=== PATIENT | male | born 1965 | race Caucasian/White ===

== ENCOUNTER 2023-09-23 10:44 | Inpatient (IN) | payer OTHER ==
[2023-09-23 11:15] VITALS: BMI 27.4
[2023-09-23] MEDS ORDERED: ONDANSETRON *ODT* 4 MG TABLET SL PRN (13:48)
[2023-09-23] MEDS ORDERED: MAGNESIUM HYDROX 2400MG/30ML ORAL SUSPENSION 30 ML CUP PO PRN (13:48)
[2023-09-23] MEDS ORDERED: NALOXONE HCL 0.4 MG/ML VIAL IM PRN (13:48)
[2023-09-23] MEDS ORDERED: POLYETHYLENE GLYCOL (HEALTHYLAX) 3350 17 GM PACKET PO PRN (13:48)
[2023-09-23] MEDS ORDERED: IBUPROFEN 400 MG TABLET (FP) PO PRN (13:48)
[2023-09-23] MEDS ORDERED: BENZOCAINE/MENTHOL (CHLORASEPTIC ) LOZENGE MM PRN (13:48)
[2023-09-23] MEDS ORDERED: METHOCARBAMOL 500 MG TABLET PO PRN (13:48)
[2023-09-23] MEDS ORDERED: MAG HYDROX/AL HYDROX/SIMETH 30 ML UNIT-DOSE CUP PO PRN (13:48)
[2023-09-23] MEDS ORDERED: NALOXONE HCL (KLOXXADO) 8 MG SPRAY NS PRN (13:48)
[2023-09-23] MEDS ORDERED: IBUPROFEN 600 MG TABLET (FP) PO PRN (13:48)
[2023-09-23] MEDS ORDERED: DICYCLOMINE HCL 10 MG CAPSULE PO PRN (13:48)
[2023-09-23] MEDS ORDERED: chlordiazePOXIDE HCL 25 MG CAPSULE PO PRN (13:48)
[2023-09-23] MEDS ORDERED: BENZONATATE 200 MG CAPSULE PO PRN (13:48)
[2023-09-23] MEDS ORDERED: LOPERAMIDE HCL 2 MG CAPSULE PO PRN (13:48)
[2023-09-23] MEDS ORDERED: BISMUTH SUBSALICYLATE 524 MG/30 ML PO PRN (13:48)
[2023-09-23] MEDS: MUPIROCIN 2% TOPICAL OINTMENT 22 GM TUBE TP SCH (15:51)
[2023-09-23] MEDS: hydrOXYzine PAMOATE 25 MG CAPSULE (FP) PO PRN (16:06)
[2023-09-23] MEDS: chlordiazePOXIDE HCL 25 MG CAPSULE PO SCH (17:50)
[2023-09-23] MEDS: FAMOTIDINE 20 MG TABLET PO SCH (22:50)
[2023-09-23] MEDS: THIAMINE 100 MG TABLET PO SCH (22:50)
[2023-09-23] MEDS: SULFAMETHOXAZOLE/TRIMETHOPRIM 800MG/160MG D.S. TABLET PO SCH (22:50)
[2023-09-23] MEDS: MELATONIN 5 MG TABLETS PO SCH (22:52)
[2023-09-24] MEDS: TAMSULOSIN HCL 0.4 MG CAP PO SCH (08:46)
[2023-09-24] MEDS: PRENATAL VITAMINS W/ FOLIC ACID TABLET (FP) PO SCH (10:49)
[2023-09-24] MEDS: LORATADINE 10 MG TABLET PO SCH (10:49)
[2023-09-24] MEDS: ATORVASTATIN CA 40 MG TABLET (FP) PO SCH (10:49)
[2023-09-24] MEDS: FLUTICASONE PROP 0.05% 16 GM NASAL SPRAY NS SCH (10:49)
[2023-09-24] MEDS: guaiFENesin 600 MG TABLET.ER (FP) PO PRN (16:28)
[2023-09-24] MEDS: ACETAMINOPHEN 325 MG TABLET (FP) PO PRN (17:37)
[2023-09-25] MEDS: chlordiazePOXIDE HCL 25 MG CAPSULE PO SCH (05:35)
[2023-09-25] MEDS: NICOTINE POLACRILEX 2 MG LOZENGE BC PRN (05:49)
[2023-09-26] MEDS ORDERED: chlordiazePOXIDE HCL 10 MG CAPSULE PO PRN
[2023-09-26] MEDS: chlordiazePOXIDE HCL 10 MG CAPSULE PO SCH (05:57)
[2023-09-26 09:00] VITALS: BP 128/60; PULSE 82; RESP 18; TEMP 98.2
[2023-09-27] MEDS ORDERED: chlordiazePOXIDE HCL 10 MG CAPSULE PO SCH (05:00)
[2023-09-28] MEDS ORDERED: chlordiazePOXIDE HCL 10 MG CAPSULE PO ONE (05:00)
== END 2023-09-26 10:10 | disposition home or self-care (01) | DRG 774 ==
LOC: YASAS 10:44 → Y6N 14:03
PROVIDERS: ADMIT Allergy & Immunology; ATTEND Surgery
PROC: HZ2ZZZZ Detoxification Services for Substance Abuse Treatment (ICD-10-PCS; principal; 2023-09-23)
DX: F10.230 Alcohol dependence with withdrawal, uncomplicated (principal); F14.20 Cocaine dependence, uncomplicated; F17.210 Nicotine dependence, cigarettes, uncomplicated; E78.5 Hyperlipidemia, unspecified; I25.10 Atherosclerotic heart disease of native coronary artery without angina pectoris; I10 Essential (primary) hypertension; Z95.5 Presence of coronary angioplasty implant and graft; K21.9 Gastro-esophageal reflux disease without esophagitis; N40.0 Benign prostatic hyperplasia without lower urinary tract symptoms; Z59.00 Homelessness unspecified; Z56.0 Unemployment, unspecified; Z88.8 Allergy status to other drugs, medicaments and biological substances
CPT/HCPCS: 93005; 93010

== ENCOUNTER 2024-01-22 16:35 | Inpatient (IN) | payer OTHER ==
[2024-01-22 17:36] VITALS: BMI 26.6
[2024-01-22] MEDS ORDERED: BENZOCAINE/MENTHOL (CHLORASEPTIC ) LOZENGE MM PRN (18:48)
[2024-01-22] MEDS ORDERED: ONDANSETRON *ODT* 4 MG TABLET SL PRN (18:48)
[2024-01-22] MEDS ORDERED: ACETAMINOPHEN 325 MG TABLET (FP) PO PRN (18:48)
[2024-01-22] MEDS ORDERED: DICYCLOMINE HCL 10 MG CAPSULE PO PRN (18:48)
[2024-01-22] MEDS ORDERED: MAGNESIUM HYDROX 2400MG/30ML ORAL SUSPENSION 30 ML CUP PO PRN (18:48)
[2024-01-22] MEDS ORDERED: IBUPROFEN 400 MG TABLET (FP) PO PRN (18:48)
[2024-01-22] MEDS ORDERED: BENZONATATE 200 MG CAPSULE PO PRN (18:48)
[2024-01-22] MEDS ORDERED: guaiFENesin 600 MG TABLET.ER (FP) PO PRN (18:48)
[2024-01-22] MEDS ORDERED: BISMUTH SUBSALICYLATE 524 MG/30 ML PO PRN (18:48)
[2024-01-22] MEDS ORDERED: NICOTINE POLACRILEX 2 MG LOZENGE BC PRN (18:48)
[2024-01-22] MEDS ORDERED: POLYETHYLENE GLYCOL (HEALTHYLAX) 3350 17 GM PACKET PO PRN (18:48)
[2024-01-22] MEDS ORDERED: LOPERAMIDE HCL 2 MG CAPSULE PO PRN (18:48)
[2024-01-22] MEDS: THIAMINE 100 MG TABLET PO SCH (22:22)
[2024-01-22] MEDS: MELATONIN 5 MG TABLETS PO SCH (22:23)
[2024-01-23] MEDS ORDERED: chlordiazePOXIDE HCL 25 MG CAPSULE PO PRN ×2 (09:25→09:50)
[2024-01-23] MEDS: PRENATAL VITAMINS W/ FOLIC ACID TABLET (FP) PO SCH (09:31)
[2024-01-23] MEDS: TAMSULOSIN HCL 0.4 MG CAP PO SCH (09:31)
[2024-01-23] MEDS: FAMOTIDINE 20 MG TABLET PO SCH (09:31)
[2024-01-23] MEDS: ASPIRIN COATED 81 MG TABLET.EC PO SCH (09:31)
[2024-01-23] MEDS: SULFAMETHOXAZOLE/TRIMETHOPRIM 800MG/160MG D.S. TABLET PO SCH (09:31)
[2024-01-23] MEDS: hydrOXYzine PAMOATE 25 MG CAPSULE (FP) PO PRN (09:32)
[2024-01-23] MEDS: METHOCARBAMOL 500 MG TABLET PO PRN (09:32)
[2024-01-23] MEDS: chlordiazePOXIDE HCL 25 MG CAPSULE PO SCH ×2 (10:14→10:16)
[2024-01-23] MEDS: amLODIPine BESYLATE 10 MG TABLET (FP) PO SCH (10:14)
[2024-01-23 11:08] LABS: CHLORIDE 108 mmol/L (98-107); POTASSIUM 4.3 mmol/L (3.5-5.1); SODIUM 140 mmol/L (136-145)
[2024-01-23 11:15] LABS: ANION GAP 5 mmol/L (4-13); BLOOD UREA NITROGEN 17.7 mg/dL (7-18); CALCIUM 8.6 mg/dL (8.5-10.1); CO2 28 mmol/L (21-32); GLUCOSE,RANDOM 80 mg/dL (74-106)
[2024-01-23 11:18] LABS: CREATININE 0.9 mg/dL (0.55-1.3); SGOT/AST 21 U/L (15-37); SGPT/ALT 32 U/L (13-61)
[2024-01-23 11:19] LABS: BILIRUBIN,TOTAL 0.5 mg/dL (0.2-1); TOT PROT 6.9 g/dl (6.4-8.2)
[2024-01-23 11:20] LABS: ALK PHOS 64 U/L (45-117)
[2024-01-23 11:23] LABS: HEMATOCRIT 37.8 % (35.4-49); MCH 31.1 pg (25.7-33.7); MCHC 34.4 g/dl (32.0-35.9); MEAN CELL VOLUME 90.3 fl (80-96); MEAN PLT VOLUME 8.2 fl (7.5-11.1); PLATELET COUNT 295 10^3/uL (134-434); RBC 4.19 M/mm3 (4.00-5.60); RDW 15.1 % (11.9-15.9); WHITE BLOOD COUNT 4.4 K/mm3 (4.0-10.0)
[2024-01-23] MEDS: ATORVASTATIN CA 40 MG TABLET (FP) PO SCH (22:12)
[2024-01-25] MEDS ORDERED: chlordiazePOXIDE HCL 25 MG CAPSULE PO SCH (05:00)
[2024-01-25] MEDS: chlordiazePOXIDE HCL 25 MG CAPSULE PO SCH (06:30)
[2024-01-26] MEDS ORDERED: chlordiazePOXIDE HCL 10 MG CAPSULE PO PRN ×2
[2024-01-26] MEDS ORDERED: chlordiazePOXIDE HCL 10 MG CAPSULE PO SCH (05:00)
[2024-01-26] MEDS: chlordiazePOXIDE HCL 10 MG CAPSULE PO SCH (05:53)
[2024-01-26] MEDS: NICOTINE POLACRILEX 2 MG GUM BUC PRN (09:37)
[2024-01-26] MEDS: IBUPROFEN 600 MG TABLET (FP) PO PRN (13:37)
[2024-01-26] MEDS: MAG HYDROX/AL HYDROX/SIMETH 30 ML UNIT-DOSE CUP PO PRN (15:26)
[2024-01-26 20:54] VITALS: BP 131/71; PULSE 71; RESP 16; TEMP 97.3
[2024-01-27] MEDS ORDERED: chlordiazePOXIDE HCL 10 MG CAPSULE PO SCH (05:00)
[2024-01-27] MEDS: chlordiazePOXIDE HCL 10 MG CAPSULE PO SCH (05:24)
[2024-01-28] MEDS ORDERED: chlordiazePOXIDE HCL 10 MG CAPSULE PO ONE ×2 (05:00)
== END 2024-01-27 08:46 | disposition home or self-care (01) | DRG 774 ==
LOC: YASAS 16:35 → Y6N 20:16
PROVIDERS: ADMIT Allergy & Immunology; ATTEND Surgery
PROC: HZ2ZZZZ Detoxification Services for Substance Abuse Treatment (ICD-10-PCS; principal; 2024-01-22)
DX: F10.230 Alcohol dependence with withdrawal, uncomplicated (principal); F14.20 Cocaine dependence, uncomplicated; F17.210 Nicotine dependence, cigarettes, uncomplicated; E78.5 Hyperlipidemia, unspecified; I25.10 Atherosclerotic heart disease of native coronary artery without angina pectoris; I10 Essential (primary) hypertension; Z95.5 Presence of coronary angioplasty implant and graft; L03.115 Cellulitis of right lower limb; M54.50 Low back pain, unspecified; G89.29 Other chronic pain; N40.0 Benign prostatic hyperplasia without lower urinary tract symptoms; Z56.0 Unemployment, unspecified; Z59.00 Homelessness unspecified; Z88.8 Allergy status to other drugs, medicaments and biological substances
CPT/HCPCS: 36415; 80053; 80305; 80307; 85027; 86780